=== PATIENT | male | born 2000 | race American Indian/Alaskan Native ===

== ENCOUNTER 2020-06-30 13:14 | Emergency (ER) | payer SELFPAY ==
[2020-06-30 14:21] VITALS: BP 141/64
--- NOTE | 2020-06-30 14:24 | Emergency Department Report ---
- General Chief Complaint: Wound/Laceration Stated Complaint: RIGHT HAND INJURY Time Seen by Provider: 06/30/20 14:19 Source: patient Mode of arrival: Ambulatory Limitations: No Limitations - History of Present Illness Initial Comments: 20-year-old -[place] male presents to the emergency room stating that he had cut his right hand between his second and third digit yesterday while playing basketball and ran into someone with his hand. Patient states he was seen by an emergency room in 4 sites not sure the name. They evaluated him and stated that they were not able to suture the wound secondary to where the wound is and not being a clip per patient. Patient is taking nothing for his pain. Bleeding has been controlled. Patient complains of pain. Last tetanus was in school. Onset/Timin -: days(s) Extremity Location: Right: Hand (Cut between second and third finger) Place: outdoors Context: accidental Associated Symptoms: pain Treatments Prior to Arrival: bandage - Related Data Allergies Allergy/AdvReac Type Severity Reaction Status Date / Time No Known Allergies Allergy Verified 06/30/20 13:39 ED Review of Systems ROS: Stated complaint: RIGHT HAND INJURY Other details as noted in HPI Comment: All other systems reviewed and negative ED Past Medical Hx - Past Medical History Previous Medical History?: No - Surgical History Past Surgical History?: No - Social History Smoking Status: Never Smoker Substance Use Type: None ED Physical Exam - General Limitations: No Limitations General appearance: alert, in no apparent distress - Head Head exam: Present: atraumatic, normocephalic - Eye Eye exam: Present: normal appearance - ENT ENT exam: Present: mucous membranes moist - Respiratory Respiratory exam: Absent: accessory muscle use - Cardiovascular Cardiovascular Exam: Present: regular rate - Neurological Exam Neurological exam: Present: alert, oriented X3 - Psychiatric Psychiatric exam: Present: normal affect, normal mood - Expanded Skin Exam Expanded Type of lesion: Present: laceration (Right hand between the web of second and third finger.) Distribution of rash: RUE Description of rash: Present: tenderness. Absent: swelling, macular ED Medical Decision Making - Medical Decision Making 20-year-old -[place] male presents to the emergency room stating that he had cut his right hand between his second and third digit yesterday while playing basketball and ran into someone with his hand. Patient states he was seen by an emergency room in 4 sites not sure the name. They evaluated him and stated that they were not able to suture the wound secondary to where the wound is and not being a clip per patient. Patient is taking nothing for his pain. Bleeding has been controlled. Patient complains of pain. Last tetanus was in school. Bandage was changed. Patient will be given a tetanus shot. Patient is instructed to keep bandage clean and dry. Do not immersion water. Can use [id number] triple antibiotic or Neosporin. Follow-up with your primary care provider or econometrician. Critical care attestation.: If time is entered above; I have spent that time in minutes in the direct care of this critically ill patient, excluding procedure time. ED Disposition Clinical Impression: Laceration of hand Qualifiers: Encounter type: sequela Foreign body presence: unspecified Laterality: right Qualified Code(s): S61.411S - Laceration without foreign body of right hand, sequela Disposition: DC-01 TO HOME OR SELFCARE Is pt being admited?: No Does the pt Need Aspirin: No Condition: Stable Instructions: Laceration Care, Adult, [id number] Additional Instructions: Keep bandage clean and dry. Change it daily. Can apply triple antibiotic or Neosporin. He has been vaccinated for tetanus. Follow-up with your primary care provider. Tylenol ibuprofen for pain management. Referrals: JASBIR MCKEON MD [Referring] - 3-5 Days Forms: Work/School Release Form(ED)
[2020-06-30] MEDS ORDERED: TETANUS,DIPH,PERTUSS(ACELL) VACCINE 0.5 ML SYRINGE IM ONE (14:25)
== END 2020-06-30 15:41 | disposition home or self-care (01) ==
LOC: ED 13:14
DX: S61.411A Laceration without foreign body of right hand, initial encounter (principal); W45.8XXA Other foreign body or object entering through skin, initial encounter; Y93.89 Activity, other specified; Y92.89 Other specified places as the place of occurrence of the external cause; Y99.8 Other external cause status
CPT/HCPCS: 90471; 90715; 99282